=== PATIENT | female | born 1995 | race Asian ===

== ENCOUNTER 2021-02-18 07:51 | Day surgery (SDC) | payer OTHER ==
[2021-02-18 08:02] LABS: Specific Gravity 1.015 (1.005-1.030)
[2021-02-18] MEDS ORDERED: propofoL 200 MG/20 ML VIAL IV ONE (08:39)
[2021-02-18] MEDS ORDERED: LIDOCAINE 2% MPF 5 ML VIAL ONE (08:40)
[2021-02-18] MEDS ORDERED: dexAMETHasone 10 MG/ML VIAL ONE (08:40)
[2021-02-18] MEDS ORDERED: ROCURONIUM 50 MG/5 ML VIAL IV ONE (08:40)
[2021-02-18] MEDS ORDERED: FENTANYL CITR 250 MCG/5 ML ONE (08:40)
[2021-02-18] MEDS ORDERED: KETOROLAC 30 MG/ML INJ ONE (08:40)
[2021-02-18] MEDS ORDERED: MIDAZOLAM HCL 2 MG/2 ML INJ ONE (08:40)
[2021-02-18] MEDS ORDERED: NS 0.9% VIAL 10 ML ONE (08:41)
[2021-02-18] MEDS ORDERED: VECURONIUM 10 MG/VIAL IV ONE (08:41)
[2021-02-18] MEDS ORDERED: ONDANSETRON 4 MG/2 ML VIAL ONE ×2 (08:41→16:50)
[2021-02-18] MEDS ORDERED: NS 0.9% VIAL 40 ML ONE (08:46)
[2021-02-18] MEDS ORDERED: CEFAZOLIN SODIUM 1 GM/VIAL ONE (08:46)
[2021-02-18] MEDS ORDERED: LIDOCAINE 1% W/EPI 1:100,000 MDV 20 ML VIAL ONE (08:47)
[2021-02-18] MEDS ORDERED: Ringers Lactate 1,000 ML IV ONE ×2 (08:47→08:48)
[2021-02-18] MEDS ORDERED: GENTAMICIN SULF 80 MG/2ML INJ ONE (08:47)
[2021-02-18] MEDS ORDERED: CEFAZOLIN/SWI 1gm 1 GM/10 ML SYR ONE (08:48)
[2021-02-18] MEDS ORDERED: Mastisol Adhesive Liq ONE (08:48)
[2021-02-18] MEDS ORDERED: BACITRACIN 50000 UNIT VIAL ONE (08:48)
[2021-02-18] MEDS ORDERED: SCOPOLAMINE HYDROBROMIDE PATCH TD ONE (09:10)
[2021-02-18] MEDS ORDERED: LANO/MINERAL OIL/PETRO 3.5 GM ONE (09:48)
[2021-02-18] MEDS ORDERED: GLYCOPYRROLATE 0.2 MG/ML SYR ONE (14:42)
[2021-02-18] MEDS ORDERED: NEOSTIGMINE 1 MG/ML -5 ML ONE (14:46)
[2021-02-18 15:10] VITALS: TEMP 97
[2021-02-18] MEDS ORDERED: CODEINE 30MG/APAP 300MG TAB ONE (15:55)
[2021-02-18 16:29] VITALS: BP 115/74; O2SAT 100
--- NOTE | 2021-02-19 01:27 | OP ---
Surgeon: Abran Yusuf MD Preoperative Diagnosis: Breast enlargement. Postoperative Diagnosis: Breast enlargement. Procedure Performed: . Anesthesia: General. Procedure In Detail: After the satisfactory induction of general anesthesia, chest was prepped with DuraPrep and dry sterile drapes applied in the usual manner. A 5 cm template was used to outline the right and left areolas. Then a transverse curvilinear incision was made with scalpel. Intervening skin was de-epithelialized with dermabrader, Epicut. Then the transverse incision was made on the ri ght side. Flap was dissected, elevated toward clavicle, sternum, anterior axillary line, and then in ferior incision was made. The patient had deepithelialized tissue formed with a cone. Prior to that excess lateral breast tissue was resected and conization performed with 2-0 PDS suture. Straps were elevated at the base 12 o'clock, 1:30 and 3 o'clock position. The straps were woven in a nd out of the pectoralis muscle back to base of cone, back to pectoral muscle, back to base and cone, and tied to themselves with 2-0 PDS sutures. This was done for the 12 o'clock, 1:30 and 3 o'clock. Strap was sewn over the sternum at 3 o'clock position with 2-0 Ethibond. Wounds were temporary stap led shut. Left side was done in identical manner. We then returned to the right side, irrigated wit h antibiotic solution. 10 JOSÉ LUIS was brought out of the axilla and then the dog ears laterally was excis ed and wound closed with 3-0 PDS running subcuticular tied from lateral to medial and medial to later al, tied in the vertical meridian. Left side was done in identical manner and then patient was sat u p. Site for new nipple-areolar complex was marked out. Tissue cored out. Nipple areolar complex de livered and then sewn with interrupted 4-0 PDS followed by 4-0 PDS running subcuticular. The amount removed from the right breast was 125 g, left breast 140 g. The patient tolerated procedure well and returned to Recovery. GH/MODL Voice ID: [id number] Report ID: [id number]
== END 2021-02-18 16:50 | disposition home or self-care (01) ==
LOC: OR 07:51
PROVIDERS: ATTEND Specialist
PROC: 0HSV0ZZ Reposition Bilateral Breast, Open Approach (ICD-10-PCS; principal; 2021-02-18 09:00)
DX: N64.81 Ptosis of breast (principal); N64.82 Hypoplasia of breast
CPT/HCPCS: 81025; 88305; 19316; J2704; J1580; J2250; J3010; J1100; J2710; J0690 ×2; J7120 ×2; J2405 ×2